=== PATIENT | female | born 1965 | race Caucasian/White ===

== ENCOUNTER → 2020-05-15 | Outpatient (REF) | payer BC | LOC: M LAB REF 15:49 | PROVIDERS: ATTEND Radiology Diagnostic Radiology | DX: N63.20 Unspecified lump in the left breast, unspecified quadrant (principal) ==

== ENCOUNTER → 2020-06-11 | Outpatient (CLI) | payer BC ==
--- NOTE | 2020-06-11 09:28 | REP ---
INDICATION: READING OUTSIDE EXAM. Addendum report to post stereotactic needle biopsy left breast mammogram done [facility] May 15, 2020. Radiology pathology concordance review requested by Dr. Aguilar. COMPARISON: Comparison screening mammography March 13, 2020, post marker clip placement mammography May 15, 2020, diagnostic mammography May 08, 2020 and bilateral sonography May 08, 2020 are also reviewed.. TECHNIQUE: Addendum report. FINDINGS: The patient and underwent stereotactic needle biopsy for a 9 mm nodular density in the inferomedial aspect of the left breast seen on mammography. There was no identifiable sonographic correlate. Stereotactic needle biopsy was performed on 15 May 2020. Stereotactic targeting is felt to have been accurate and marker clip is seen in good position on post procedure craniocaudal view.. A benign pathologic result was received, describing fatty breast parenchyma with rare microcalcifications. IMPRESSION: The pathology report is not definitely concordant with the imaging findings. Lesion could have been a isoechoic cystic lesion. Recommend 6 month follow-up mammogram and repeat ultrasound.. <Electronically signed by Dieudonne Medel > 06/11/20 [id number]
== END ==
LOC: M RAD 08:57
PROVIDERS: ATTEND Surgery
DX: N63.22 Unspecified lump in the left breast, upper inner quadrant (principal)

== ENCOUNTER → 2020-07-12 | Outpatient (CLI) | payer BC ==
--- NOTE | 2020-07-12 10:54 | REP ---
INDICATION: LT BREAST POST BIOPSY,ASSESS APPROPRIATE CLIP PLACEMENT. COMPARISON: 11/20/2014, 02/09/2017, 03/13/2020, 05/08/2020, 05/15/2020. TECHNIQUE: MLO, mL and CC views left breast performed with tomosynthesis. FINDINGS: Moderate, heterogeneous and somewhat nodular parenchyma is seen diffusely throughout the left breast unchanged since prior studies. Biopsy marking clip is seen in the nodule identified on the mammogram of 03/13/2020, an on subsequent diagnostic mammogram 05/08/2020. Pathology report was benign from the biopsy performed 05/15/2020. No new nodule is seen in the left breast. No new clusters of microcalcifications are seen. IMPRESSION: BIRADS/ACR category 3 probably benign. Biopsy clip is seen within the nodule in the medial left breast, originally identified by mammography 03/13/2020 and 05/08/2020. Recommend six-month post biopsy mammogram left breast to ensure stability. This mammogram was interpreted with the aid of an FDA-approved computer-aided detection system. The patient letter being requested is M3. RECOMMENDATION: Recommend 6 month follow-up mammogram left breast as discussed above. <Electronically signed by Zander Figueroa > 07/12/20 [id number]
== END ==
LOC: M WHC 08:57
PROVIDERS: ATTEND Surgery
DX: N63.20 Unspecified lump in the left breast, unspecified quadrant (principal)
CPT/HCPCS: 77065; G0279

== ENCOUNTER → 2021-01-03 | Outpatient (CLI) | payer BC ==
--- NOTE | 2021-01-03 09:26 | REP ---
INDICATION: CAT 3 MAMMO 6 MONTH F/U. COMPARISON: Multiple TECHNIQUE: Digital CC and MLO views of the left breast were obtained using 2D and 3D modalities and compared to the prior exams. The patient is status post benign left breast biopsy. The patient has no breast complaints. FINDINGS: The left breast is unchanged in size and shape. There are no sachin soft tissue densities or spiculated masses. There is no internal architectural distortion. There are no suspicious calcifications. There is no skin thickening or nipple retraction. There is an unchanged biopsy clip in the lower inner quadrant. IMPRESSION: BIRADS/ACR category 2 benign findings. [facility] score [facility] 11.3 %. This mammogram was interpreted with the aid of an FDA-approved computer-aided detection system. The patient states she had a clinical breast exam in June 2020. The patient letter being requested is M1. RECOMMENDATION: Repeat screening mammography recommended 1 year (for women over 40). <Electronically signed by Hari Irwin > 01/03/21 [id number]
== END ==
LOC: M WHC 08:46
PROVIDERS: ATTEND Surgery
DX: R92.8 Other abnormal and inconclusive findings on diagnostic imaging of breast (principal)
CPT/HCPCS: 77065; G0279

== ENCOUNTER → 2021-12-02 | Outpatient (CLI) | payer BC | LOC: M WHC 11:44 | DX: Z12.31 Encounter for screening mammogram for malignant neoplasm of breast (principal) ==